=== PATIENT | female | born 1995 ===

== ENCOUNTER 2017-08-04 04:00 | Emergency (ER) | payer OTHER ==
--- NOTE | 2017-08-04 04:18 | ED PDOC ---
HPI: Psych/Substance Abuse Time Seen by Provider: 08/04/17 04:09 Chief Complaint (Nursing): Substance Abuse Chief Complaint (Provider): Intoxication ED Caveat: Intoxicated History Per: Patient History/Exam Limitations: intoxication Onset/Duration Of Symptoms: Days Current Symptoms Are (Timing): Still Present Additional Complaint(s): Patient is a 21-year-old female who was brought to the ED by EMS for substance abuse. Found intoxicated at a [employer] by employment security officer. Upon arrival to ED, patient ambulating with unsteady gait. Not answering any questions. PMD: Provider TBD Past Medical History Reviewed: Historical Data, Nursing Documentation, Vital Signs, Unable To Obtain Vital Signs: Last Vital Signs Temp 98.4 F 08/04/17 04:05 Pulse 89 08/04/17 04:05 Resp 17 08/04/17 04:05 BP 127/61 08/04/17 04:05 Pulse Ox 100 08/04/17 04:05 - Medical History PMH: No Chronic Diseases - Surgical History Surgical History: No Surg Hx - Family History Family History: States: No Known Family Hx - Allergies Allergies/Adverse Reactions: Allergies Allergy/AdvReac Type Severity Reaction Status Date / Time No Known Allergies Allergy Verified 08/04/17 04:05 Review of Systems Review Of Systems: ROS cannot be obtained secondary to pt's inabilty to answer questions. Physical Exam - Reviewed Nursing Documentation Reviewed: Yes Vital Signs Reviewed: Yes - Physical Exam Appears: Positive for: Non-toxic, No Acute Distress Head Exam: Positive for: ATRAUMATIC, NORMOCEPHALIC Skin: Positive for: Normal Color, Warm, Dry Eye Exam: Positive for: EOMI, Normal appearance, PERRL Neck: Positive for: Normal, Painless ROM Cardiovascular/Chest: Positive for: Regular Rate, Rhythm. Negative for: Murmur Respiratory: Positive for: Normal Breath Sounds. Negative for: Respiratory Distress Gastrointestinal/Abdominal: Positive for: Normal Exam, Soft. Negative for: Tenderness Extremity: Positive for: Normal ROM. Negative for: Pedal Edema, Deformity Neurologic/Psych: Positive for: Alert (and awake), Gait (unsteady), Other (not answering questions) - Laboratory Results Result Diagrams: 08/04/17 04:29 08/04/17 04:29 - ECG O2 Sat by Pulse Oximetry: 100 (RA) Pulse Ox Interpretation: Normal Medical Decision Making Medical Decision Making: Time: 04:12 Initial Impression: 21 year old female with ETOH intoxication and substance abuse Initial Plan: --CMP --Alcohol serum --Urine drug screen --CBC w/ differential --Urine dipstick --Urine --Accucheck --Pending sobriety Labs reviewed, alcohol level is 49. Still pending toxicology. Time: 07:00 Patient is signed out by me to Dr. Tarah Newton, pending labs and clinical sobriety. Scribe Attestation: Documented by Melissa Velazquez, acting as a scribe for Brain Prasad MD Provider Scribe Attestation: All medical record entries made by the Scribe were at my direction and personally dictated by me. I have reviewed the chart and agree that the record accurately reflects my personal performance of the history, physical exam, medical decision making, and the department course for this patient. I have also personally directed, reviewed, and agree with the discharge instructions and disposition. Disposition - Clinical Impression Clinical Impression: Polysubstance abuse - Patient ED Disposition Is Patient to be Admitted: Transfer of Care - Disposition Disposition: Transfer of Care Disposition Time: 07:00 Condition: STABLE Patient Signed Over To: Tarah Newton (pending labs and clinical sobriety)
[2017-08-04 04:33] LABS: BASO # 0.1 K/uL (0.0-0.2); BASO % 0.9 % (0.0-2.0); EOS # 0.4 K/uL (0.0-0.7); HEMATOCRIT 38.9 % (34.0-47.0); LYMPH # 2.4 K/uL (1.0-4.3); LYMPH % 27.5 % (20.0-40.0); MEAN CELL VOLUME 91.9 fl (81.0-99.0); MEAN CORPUSCULAR HEMOGLOBIN 30.9 pg (27.0-31.0); MEAN CORPUSCULAR HGB CONC 33.6 g/dL (33.0-37.0); MEAN PLATELET VOLUME 11.7 fl (7.2-11.7); MONO # 0.7 K/uL (0.0-0.8); MONO % 7.4 % (0.0-10.0); NEUT # 5.2 K/uL (1.8-7.0); NEUT % 59.2 % (50.0-75.0); NRBC % 0.1 % (0.0-0.0); RED CELL DISTRIBUTION WIDTH 13.6 % (11.5-14.5); WHITE BLOOD COUNT 8.8 K/uL (4.8-10.8)
[2017-08-04 04:40] LABS: ALB/GLOB RATIO 1.5 (1.0-2.1); ALCOHOL SERUM 49 mg/dl (0-10); ALKALINE PHOSPHATASE 84 U/L (38-126); ALT/SGPT 26 U/L (9-52); AST/SGOT 24 U/L (14-36); BILIRUBIN,TOTAL 0.2 mg/dl (0.2-1.3); BLOOD UREA NITROGEN 5 mg/dl (7-17); CALCIUM 8.7 mg/dL (8.4-10.2); CARBON DIOXIDE 21 mmol/L (22-30); CHLORIDE 111 mmol/L (98-107); GFR AFRICAN-AMERICAN > 60; GLUCOSE,RANDOM 104 mg/dL (65-105); POTASSIUM 3.4 MMOL/L (3.6-5.0); SODIUM 145 mmol/l (132-148); TOTAL PROTEIN 6.8 G/DL (6.3-8.2)
--- NOTE | 2017-08-04 07:11 | ED PDOC ---
- Laboratory Results Result Diagrams: 08/04/17 04:29 08/04/17 04:29 - ECG O2 Sat by Pulse Oximetry: 100 (RA) Medical Decision Making Medical Decision Making: Time: 07:00 Patient is signed over to me by Dr. Prasad pending sobriety and reevaluation. Time: 13:25 Upon provider reevaluation patient is feeling better, is medically stable, and requires no further treatment in the ED at this time. Patient will be discharged home. Counseling was provided and all questions were answered regarding diagnosis.There is agreement to discharge plan. Return if symptoms persist or worsen. Clinical Impression: Alcohol Intoxication Scribe Attestation: Documented by Jamison Chang acting as a scribe for Tarah Newton MD. Scribe Attestation: All medical record entries made by the Scribe were at my direction and personally dictated by me. I have reviewed the chart and agree that the record accurately reflects my personal performance of the history, physical exam, medical decision making, and the department course for this patient. I have also personally directed, reviewed, and agree with the discharge instructions and disposition. Disposition - Clinical Impression Clinical Impression: Polysubstance abuse - POA Present On Arrival: None - Disposition Disposition: Routine/Home Disposition Time: 13:25 Condition: STABLE
[2017-08-04] MEDS ORDERED: Potassium Chloride 20 mEq ER Tab PO STA (11:26)
[2017-08-04 12:34] VITALS: BP 122/60; PULSE 72; RESP 18; TEMP 98
[2017-08-04 13:24] VITALS: O2SAT 100
== END 2017-08-04 13:56 | disposition home or self-care (01) ==
LOC: H.ER 04:00
DX: F19.129 Other psychoactive substance abuse with intoxication, unspecified (principal); Y90.2 Blood alcohol level of 40-59 mg/100 ml

== ENCOUNTER 2017-08-27 14:12 | Emergency (ER) | payer OTHER ==
[2017-08-27 14:19] VITALS: BP 107/52; PULSE 72; RESP 16; TEMP 97.4; O2SAT 98
--- NOTE | 2017-08-27 15:02 | ED PDOC ---
HPI: CCC, URI, Sore Throat Time Seen by Provider: 08/27/17 14:45 Chief Complaint (Nursing): Cough, Cold, Congestion Chief Complaint (Provider): Cough History Per: Patient History/Exam Limitations: no limitations Onset/Duration Of Symptoms: Days (x 3 weeks) Current Symptoms Are (Timing): Still Present Associated Symptoms: Cough. denies: Sputum Additional Complaint(s): 22 year old female with a past medical history of asthma presents to the ER complaining of cough and congestion for the past 2-3 weeks. She states there is no phlegm produced by the cough, but she feels very congested. Patient also feels fatigued and states she lost her inhaler. Of note, she is a smoker. Also patient is concerned and requests test. PMD: None provided Past Medical History Reviewed: Historical Data, Nursing Documentation, Vital Signs Vital Signs: Last Vital Signs Temp 97.4 F L 08/27/17 14:16 Pulse 72 08/27/17 14:16 Resp 16 08/27/17 14:16 BP 107/52 L 08/27/17 14:16 Pulse Ox 98 08/27/17 15:07 - Family History Family History: States: Unknown Family Hx - Social History Current smoker - smoking cessation education provided: Yes - Home Medications Home Medications: Ambulatory Orders Medication Instructions Recorded Albuterol HFA [Ventolin HFA 90 2 puff IH [id number] PRN #1 inhaler 08/27/17 mcg/actuation (8 g)] Promethazine/Codeine 5 ml PO Q12 PRN #100 ml 08/27/17 [Codeine/Promethazine 10 MG/5 Ml-6.25 MG/5 Ml] - Allergies Allergies/Adverse Reactions: Allergies Allergy/AdvReac Type Severity Reaction Status Date / Time No Known Allergies Allergy Verified 08/27/17 14:16 Review of Systems ROS Statement: Except As Marked, All Systems Reviewed And Found Negative Constitutional: Negative for: Fever ENT: Positive for: Throat Pain Respiratory: Positive for: Cough. Negative for: Sputum Physical Exam - Reviewed Nursing Documentation Reviewed: Yes Vital Signs Reviewed: Yes - Physical Exam Appears: Positive for: Well, Non-toxic, No Acute Distress Head Exam: Positive for: ATRAUMATIC, NORMOCEPHALIC Skin: Positive for: Normal Color, Warm, Dry Eye Exam: Positive for: EOMI, Normal appearance, PERRL ENT: Positive for: Normal ENT Inspection, Pharynx Is (clear), TM Is/Are (normal bilaterally). Negative for: Tonsillar Exudate, Tonsillar Swelling Neck: Positive for: Normal, Painless ROM, Supple Cardiovascular/Chest: Positive for: Regular Rate, Rhythm. Negative for: Murmur Respiratory: Positive for: Normal Breath Sounds. Negative for: Accessory Muscle Use, Rhonchi, Wheezing, Respiratory Distress Neurologic/Psych: Positive for: Alert, Oriented - Laboratory Results Urine POC: Negative - ECG O2 Sat by Pulse Oximetry: 98 (RA) Pulse Ox Interpretation: Normal Medical Decision Making Medical Decision Making: Time: 15:04 Initial Impression: 22 y/o female with viral illness, requesting urine preg Initial Plan: * Ordered Urine test Patient is medically stable for discharge. Will d/c with rx's for albuterol inhaler and promethazine/codeine. Scribe Attestation: Documented by Melissa Velazquez, acting as a scribe for Dmitri Chang PA-C Provider Scribe Attestation: All medical record entries made by the Scribe were at my direction and personally dictated by me. I have reviewed the chart and agree that the record accurately reflects my personal performance of the history, physical exam, medical decision making, and the department course for this patient. I have also personally directed, reviewed, and agree with the discharge instructions and disposition. Disposition - Clinical Impression Clinical Impression: Viral illness - Patient ED Disposition Is Patient to be Admitted: No Counseled Patient/Family Regarding: Diagnosis, Need For Followup - Disposition Referrals: [facility] [Outside] Disposition: Routine/Home Disposition Time: 15:22 Condition: FAIR Prescriptions: Albuterol HFA [Ventolin HFA 90 mcg/actuation (8 g)] 2 puff IH [id number] PRN #1 inhaler PRN Reason: Cough Promethazine/Codeine [Codeine/Promethazine 10 MG/5 Ml-6.25 MG/5 Ml] 5 ml PO Q12 PRN #100 ml PRN Reason: Cough Instructions: Viral Syndrome (ED) Forms: [employer] [facility] (Maori), [facility] ED School/Work Excuse
== END 2017-08-27 15:23 | disposition home or self-care (01) ==
LOC: H.ER 14:12
DX: B34.9 Viral infection, unspecified (principal); F17.200 Nicotine dependence, unspecified, uncomplicated

== ENCOUNTER 2017-09-01 16:16 | Emergency (ER) | payer OTHER ==
[2017-09-01 16:22] VITALS: BP 140/92; PULSE 97; RESP 18; TEMP 98.6; O2SAT 100
--- NOTE | 2017-09-01 17:01 | ED PDOC ---
HPI: General Adult Time Seen by Provider: 09/01/17 16:23 Chief Complaint (Nursing): Cough, Cold, Congestion Chief Complaint (Provider): Cough, Cold, Congestion History Per: Patient History/Exam Limitations: no limitations Onset/Duration Of Symptoms: Other (x4 weeks) Current Symptoms Are (Timing): Still Present Additional Complaint(s): 22 y/o female with past medical history of asthma presents to the ED complaining of cough productive of white sputum x 4 weeks. Patient was seen here in ED several days ago and was prescribed Albuterol inhaler and promethazine but she lost her prescription and thus didnt take any medications to resolve symptoms. Denies fever, chest pain, hemoptysis, diarrhea, nausea, vomiting or any further medical complaints. Past Medical History Vital Signs: Last Vital Signs Temp 98.6 F 09/01/17 16:20 Pulse 97 H 09/01/17 16:20 Resp 18 09/01/17 16:20 BP 140/92 H 09/01/17 16:20 Pulse Ox 100 09/01/17 17:13 - Medical History PMH: Asthma - Family History Family History: States: Unknown Family Hx - Social History Ex-Smoker (has not smoked in the last 12 months): Yes (Heavy smoker > 10cigarettes daily) Alcohol: Other (yes) Drugs: Other (yes) - Home Medications Home Medications: Ambulatory Orders Medication Instructions Recorded Albuterol HFA [Ventolin HFA 90 2 puff IH [id number] PRN #1 inhaler 08/27/17 mcg/actuation (8 g)] Promethazine/Codeine 5 ml PO Q12 PRN #100 ml 08/27/17 [Codeine/Promethazine 10 MG/5 Ml-6.25 MG/5 Ml] Albuterol HFA [Ventolin HFA 90 2 puff IH [id number] PRN #90 puff 09/01/17 mcg/actuation (8 g)] Promethazine/Codeine 5 ml PO Q12 PRN #50 ml 09/01/17 [Phenergan/Codeine Oral Syrup] - Allergies Allergies/Adverse Reactions: Allergies Allergy/AdvReac Type Severity Reaction Status Date / Time No Known Allergies Allergy Verified 08/27/17 14:16 Review of Systems ROS Statement: Except As Marked, All Systems Reviewed And Found Negative (As per HPI, otherwise negative) Constitutional: Negative for: Fever Cardiovascular: Negative for: Chest Pain Respiratory: Positive for: Cough (cough productive of white sputum). Negative for: Hemoptysis Gastrointestinal: Negative for: Nausea, Vomiting, Diarrhea Physical Exam - Reviewed Nursing Documentation Reviewed: Yes Vital Signs Reviewed: Yes - Physical Exam Appears: Positive for: Well, Non-toxic, No Acute Distress Head Exam: Positive for: ATRAUMATIC, NORMAL INSPECTION, NORMOCEPHALIC Skin: Positive for: Normal Color, Warm, Dry Eye Exam: Positive for: EOMI, Normal appearance, PERRL ENT: Positive for: Normal ENT Inspection Neck: Positive for: Normal, Painless ROM, Supple Cardiovascular/Chest: Positive for: Regular Rate, Rhythm. Negative for: Murmur Respiratory: Positive for: Normal Breath Sounds. Negative for: Accessory Muscle Use, Respiratory Distress Gastrointestinal/Abdominal: Positive for: Normal Exam, Bowel Sounds, Soft Back: Positive for: Normal Inspection Extremity: Positive for: Normal ROM Neurologic/Psych: Positive for: Alert, Oriented (x3) - ECG O2 Sat by Pulse Oximetry: 100 (RA) Pulse Ox Interpretation: Normal - Progress ED Course And Treament: Pt. searched on [place] [employer] and shows no narcotic Rx within the past 2 years. Medical Decision Making Medical Decision Making: Time: 14:19 Plan: Cheat x-ray Reevaluation Scribe Attestation: Documented by Jamison Chang acting as a scribe for CYNTHIA Red. Scribe Attestation: All medical record entries made by the Scribe were at my direction and personally dictated by me. I have reviewed the chart and agree that the record accurately reflects my personal performance of the history, physical exam, medical decision making, and the department course for this patient. I have also personally directed, reviewed, and agree with the discharge instructions and disposition. Disposition - Clinical Impression Clinical Impression: Acute bronchitis - Patient ED Disposition Is Patient to be Admitted: No - Disposition Referrals: [facility] [Outside] Disposition: Routine/Home Disposition Time: 17:10 Condition: STABLE Prescriptions: Albuterol HFA [Ventolin HFA 90 mcg/actuation (8 g)] 2 puff IH [id number] PRN #90 puff PRN Reason: Cough Promethazine/Codeine [Phenergan/Codeine Oral Syrup] 5 ml PO Q12 PRN #50 ml PRN Reason: Cough Instructions: Acute Bronchitis (ED), How to Stop Smoking (ED) Forms: [employer] (Azeri)
--- NOTE | 2017-09-01 17:11 | RAD ---
HISTORY: Cough COMPARISON: No prior. TECHNIQUE: Chest PA and lateral FINDINGS: LUNGS: No active pulmonary disease. PLEURA: No significant pleural effusion identified. No pneumothorax apparent. CARDIOVASCULAR: Normal. OSSEOUS STRUCTURES: No significant abnormalities. VISUALIZED UPPER ABDOMEN: Normal. OTHER FINDINGS: None. IMPRESSION: No active disease.
== END 2017-09-01 17:44 | disposition home or self-care (01) ==
LOC: H.ER 16:16
DX: J20.9 Acute bronchitis, unspecified (principal); J45.909 Unspecified asthma, uncomplicated; Z87.891 Personal history of nicotine dependence

== ENCOUNTER 2017-10-15 13:42 | Emergency (ER) | payer OTHER ==
[2017-10-15 13:58] VITALS: BP 131/71; PULSE 88; RESP 16; TEMP 97; O2SAT 100
[2017-10-15] MEDS ORDERED: cefTRIAXone (Rocephin) 250 mg Inj IM STA (15:27)
[2017-10-15] MEDS ORDERED: cefTRIAXone (Rocephin) 250 mg Inj ONE (15:41)
--- NOTE | 2017-10-15 15:43 | ED PDOC ---
HPI: Abdomen Time Seen by Provider: 10/15/17 14:11 Chief Complaint (Nursing): Abdominal Pain Chief Complaint (Provider): Abdominal Pain History Per: Patient History/Exam Limitations: no limitations Onset/Duration Of Symptoms: Days (x2 weeks) Current Symptoms Are (Timing): Still Present Additional Complaint(s): 22 year old female with a past medical history of asthma and bipolar disorder, who presents to the ED complaining of intermittent pelvic and epigastric pain x2 weeks. States the pain seems to change location and comes and goes. Denies associated nausea, vomiting, diarrhea or constipation. Also denies loss of appetite. LNMP was last week. States she currently has no vaginal discharge or bleeding. Denies rash, fever, or chills. States she is concerned due to a recent sexual exposure with another person that may have an STI. Patient is also complaining of a cough x2 months. States it is not productive and is associated with a mild sore throat and rhinorrhea. Patient also reports she has been drinking every night for the past few weeks because "it's there". Denies alcohol dependence. PMD: None Past Medical History Reviewed: Historical Data, Nursing Documentation, Vital Signs Vital Signs: Last Vital Signs Temp 97.0 F L 10/15/17 13:57 Pulse 88 10/15/17 13:57 Resp 16 10/15/17 13:57 BP 131/71 10/15/17 13:57 Pulse Ox 100 10/15/17 15:51 - Medical History PMH: Asthma, Bipolar Disorder (off medication) - Surgical History Surgical History: No Surg Hx - Family History Family History: States: Unknown Family Hx - Social History Current smoker - smoking cessation education provided: Yes Alcohol: > 2 Drinks/Day Drugs: Cannabis - Home Medications Home Medications: Ambulatory Orders Medication Instructions Recorded Albuterol HFA [Ventolin HFA 90 2 puff IH [id number] PRN #1 inhaler 08/27/17 mcg/actuation (8 g)] Promethazine/Codeine 5 ml PO Q12 PRN #100 ml 08/27/17 [Codeine/Promethazine 10 MG/5 Ml-6.25 MG/5 Ml] Albuterol HFA [Ventolin HFA 90 2 puff IH [id number] PRN #90 puff 09/01/17 mcg/actuation (8 g)] Promethazine/Codeine 5 ml PO Q12 PRN #50 ml 09/01/17 [Phenergan/Codeine Oral Syrup] Albuterol HFA [Ventolin HFA 90 2 puff IH Q4H PRN #1 inh 10/15/17 mcg/actuation (8 g)] Azithromycin [Zithromax] 250 mg PO DAILY #4 dose 10/15/17 Famotidine [Pepcid] 40 mg PO DAILY PRN #14 tab 10/15/17 - Allergies Allergies/Adverse Reactions: Allergies Allergy/AdvReac Type Severity Reaction Status Date / Time No Known Allergies Allergy Verified 10/15/17 13:56 Review of Systems ROS Statement: Except As Marked, All Systems Reviewed And Found Negative Constitutional: Negative for: Fever, Chills Gastrointestinal: Positive for: Abdominal Pain. Negative for: Nausea, Vomiting , Diarrhea, Constipation Genitourinary Female: Positive for: Pelvic Pain. Negative for: Vaginal Discharge, Vaginal Bleeding Skin: Negative for: Rash Psych: Negative for: Psychosis, Suicidal ideation (or homicidal) Physical Exam - Reviewed Nursing Documentation Reviewed: Yes Vital Signs Reviewed: Yes - Physical Exam Appears: Positive for: Non-toxic, No Acute Distress Head Exam: Positive for: ATRAUMATIC, NORMOCEPHALIC Skin: Positive for: Warm, Dry Eye Exam: Positive for: EOMI, PERRL ENT: Positive for: Pharynx Is (clear). Negative for: Pharyngeal Erythema, Tonsillar Exudate, Tonsillar Swelling Neck: Positive for: Painless ROM, Supple Cardiovascular/Chest: Positive for: Regular Rate, Rhythm, Chest Non Tender. Negative for: Murmur Respiratory: Positive for: Normal Breath Sounds. Negative for: Rales, Wheezing , Respiratory Distress Gastrointestinal/Abdominal: Positive for: Soft. Negative for: Tenderness, Mass , Distended, Guarding Back: Positive for: Normal Inspection. Negative for: Decreased ROM Extremity: Positive for: Normal ROM. Negative for: Deformity Lymphatic: Negative for: Adenopathy ( cervical) Neurologic/Psych: Positive for: Alert. Negative for: Motor/Sensory Deficits - ECG O2 Sat by Pulse Oximetry: 100 (RA) Pulse Ox Interpretation: Normal Medical Decision Making Medical Decision Making: Time: 14:23 Initial Impression: Mild cough, and abdominal pain with benign clinical findings Initial Plan: --ED Urine --ED Urine dipstick --CXR --Chlamydia/GC RNA,TMA --Throat culture --Influenza A B --Rapid strep group A antigen Time: 15:29 Labs and cxr unremarkable Upon provider evaluation patient is medically stable, and requires no further treatment in the ED at this time. Patient will be discharged with Rx for Pepcid , Zithromax, and Albuterol. Counseling was provided and all questions were answered regarding diagnosis and need for follow up with PMD. There is agreement to discharge plan. Return if symptoms persist or worsen. Scribe Attestation: Documented by Ap Sharp, acting as a scribe for Ceci Jackson MD. Provider Scribe Attestation: All medical record entries made by the Scribe were at my direction and personally dictated by me. I have reviewed the chart and agree that the record accurately reflects my personal performance of the history, physical exam, medical decision making, and the department course for this patient. I have also personally directed, reviewed, and agree with the discharge instructions and disposition. Disposition - Clinical Impression Clinical Impression: Cough, Abdominal pain - Patient ED Disposition Is Patient to be Admitted: No Counseled Patient/Family Regarding: Studies Performed, Diagnosis, Need For Followup, Rx Given - Disposition Referrals: [facility] [Outside] (FOLLOW UP AT CLINIC IN 1-2 WEEKS FOR REEVALUATION) Disposition: Routine/Home Disposition Time: 15:29 Condition: GOOD Prescriptions: Albuterol HFA [Ventolin HFA 90 mcg/actuation (8 g)] 2 puff IH Q4H PRN #1 inh PRN Reason: ASTHMA Azithromycin [Zithromax] 250 mg PO DAILY #4 dose Famotidine [Pepcid] 40 mg PO DAILY PRN #14 tab PRN Reason: reflux Instructions: Safe Sex (ED), Acute Bronchitis (ED), Abdominal Pain (ED) Forms: [employer] (Azerbaijani)
--- NOTE | 2017-10-15 16:13 | RAD ---
HISTORY: persitent cough COMPARISON: Comparison is made with 09/01/2017 TECHNIQUE: Chest PA and lateral FINDINGS: LUNGS: No active pulmonary disease. PLEURA: No significant pleural effusion identified. No pneumothorax apparent. CARDIOVASCULAR: Normal. OSSEOUS STRUCTURES: No significant abnormalities. VISUALIZED UPPER ABDOMEN: Normal. OTHER FINDINGS: None. IMPRESSION: No active disease.
== END 2017-10-15 16:02 | disposition home or self-care (01) ==
LOC: H.ER 13:42
DX: J45.909 Unspecified asthma, uncomplicated (principal); R10.9 Unspecified abdominal pain; F17.200 Nicotine dependence, unspecified, uncomplicated
CPT/HCPCS: 71046; 81025; 87070; 87430; 87491; 87591; 87804; 96372; 99282; J0696

== ENCOUNTER 2018-08-31 00:54 | Emergency (ER) | payer MEDICAID, OTHER ==
[2018-08-31 01:20] VITALS: RESP 18; O2SAT 98
[2018-08-31] MEDS ORDERED: Albuterol-Ipratrop 3 mg / 0.5 (3 ml) UD INH STA (01:43)
--- NOTE | 2018-08-31 02:53 | ED PDOC ---
HPI: CCC, URI, Sore Throat Time Seen by Provider: 08/31/18 01:12 Chief Complaint (Nursing): Cough, Cold, Congestion Chief Complaint (Provider): Cough, Cold, Congestion History Per: Patient History/Exam Limitations: no limitations Onset/Duration Of Symptoms: Persistent (x1 week) Current Symptoms Are (Timing): Still Present Additional Complaint(s): 23 year old female with pmHx of asthma, presents to ED with complaints of productive cough and chills for 1 week. Patient reports she is homeless and has not had a flu shot this year. Otherwise, she denies fever or further medical complaints. PCP: Dr. Saira Hernandez Past Medical History Reviewed: Historical Data, Nursing Documentation, Vital Signs Vital Signs: Last Vital Signs Temp 98.1 F 08/31/18 01:16 Pulse 89 08/31/18 01:16 Resp 18 08/31/18 01:16 BP 124/78 08/31/18 01:16 Pulse Ox 98 08/31/18 01:16 - Medical History PMH: Asthma, Bipolar Disorder (off medication) - Family History Family History: States: Unknown Family Hx - Social History Current smoker - smoking cessation education provided: Yes (1/2 pack/daily) - Home Medications Home Medications: Ambulatory Orders Medication Instructions Recorded No Known Home Med 08/31/18 - Allergies Allergies/Adverse Reactions: Allergies Allergy/AdvReac Type Severity Reaction Status Date / Time No Known Allergies Allergy Verified 10/15/17 13:56 Review of Systems ROS Statement: Except As Marked, All Systems Reviewed And Found Negative Constitutional: Positive for: Chills. Negative for: Fever Respiratory: Positive for: Cough, Sputum Physical Exam - Reviewed Nursing Documentation Reviewed: Yes Vital Signs Reviewed: Yes - Physical Exam Appears: Positive for: Non-toxic, No Acute Distress Head Exam: Positive for: ATRAUMATIC, NORMAL INSPECTION, NORMOCEPHALIC Skin: Positive for: Normal Color Eye Exam: Positive for: Normal appearance, EOMI, PERRL ENT: Positive for: Normal ENT Inspection. Negative for: Pharyngeal Erythema, Tonsillar Exudate, Tonsillar Swelling Neck: Positive for: Normal, Supple Cardiovascular/Chest: Positive for: Regular Rate, Rhythm, Chest Non Tender Respiratory: Positive for: Wheezing (trace on expiration bilaterally). Negative for: Respiratory Distress Gastrointestinal/Abdominal: Positive for: Normal Exam, Soft. Negative for: Tenderness Extremity: Positive for: Normal ROM (upper/lower) Neurologic/Psych: Positive for: Alert, Oriented. Negative for: Motor/Sensory Deficits - ECG O2 Sat by Pulse Oximetry: 98 (RA) Pulse Ox Interpretation: Normal Medical Decision Making Medical Decision Making: Initial Impression: 23 year old female with URI and bronchitis. Initial Plan: * Urine * CXR * Duoneb 3ml INH * Influenza AB Time: 0300 --Urine: (+) . CXR subsequently cancelled secondary to risk of radiation exposure. Negative for influenza. Time: 0530 --Upon provider reevaluation, patient is medically stable and requires no further treatment in the ED at this time. Patient will be discharged home. Counseling was provided and all questions were answered regarding diagnosis. There is agreement to discharge plan. Return if symptoms persist or worsen. Clinical Impression: Bronchitis Scribe Attestation: Documented by Christina Hernandez, acting as a scribe for Brain Prasad MD. Provider Scribe Attestation: All medical record entries made by the Scribe were at my direction and personally dictated by me. I have reviewed the chart and agree that the record accurately reflects my personal performance of the history, physical exam, medical decision making, and the department course for this patient. I have also personally directed, reviewed, and agree with the discharge instructions and disposition. Disposition - Clinical Impression Clinical Impression: Bronchitis - Patient ED Disposition Is Patient to be Admitted: No Counseled Patient/Family Regarding: Studies Performed, Diagnosis, Need For Followup - Disposition Disposition: Routine/Home Disposition Time: 05:30 Condition: STABLE Instructions: Acute Bronchitis Forms: [employer] (Citizen Of [place])
[2018-08-31 06:01] VITALS: BP 110/78; PULSE 78; TEMP 98.2
== END 2018-08-31 06:00 | disposition home or self-care (01) ==
LOC: H.ER 00:54
DX: J40 Bronchitis, not specified as acute or chronic (principal); Z59.0 Homelessness

== ENCOUNTER 2018-09-01 03:21 | Emergency (ER) | payer MEDICAID, OTHER ==
[2018-09-01 03:37] VITALS: BMI 22.3
[2018-09-01 03:39] VITALS: TEMP 98.3
--- NOTE | 2018-09-01 05:31 | ED PDOC ---
HPI: Chest Pain Time Seen by Provider: 09/01/18 04:09 Chief Complaint (Nursing): Chest Pain Chief Complaint (Provider): chest pain History Per: Patient History/Exam Limitations: no limitations Onset/Duration Of Symptoms: Days Additional Complaint(s): 23 y/o Homeless Female with no significant PMH who presents with chest pain and cough x several days. Pt was seen here in ED yesterday and found to be . Pt states that she was given antibiotic prescription yesterday for possible bronchitis. She admits to smoking cigarettes and occasional marijuana, which she is trying to quit. Denies dizziness, N/V, fevers, night sweats. Continues to have nausea and occasional vomiting. Denies abdominal pain or dizziness, vaginal bleeding or abdominal cramping. Past Medical History Reviewed: Historical Data, Nursing Documentation, Vital Signs Vital Signs: Last Vital Signs Temp 98.3 F 09/01/18 03:37 Pulse 78 09/01/18 03:37 Resp 18 09/01/18 03:37 BP 115/57 L 09/01/18 03:37 Pulse Ox 98 09/01/18 03:37 - Medical History PMH: Asthma, Bipolar Disorder (off medication) - Family History Family History: States: Unknown Family Hx - Social History Current smoker - smoking cessation education provided: Yes Drugs: Cannabis - Home Medications Home Medications: Ambulatory Orders Medication Instructions Recorded RX: No Known Home Med 08/31/18 - Allergies Allergies/Adverse Reactions: Allergies Allergy/AdvReac Type Severity Reaction Status Date / Time No Known Allergies Allergy Verified 09/01/18 03:36 Review of Systems Constitutional: Negative for: Fever, Chills, Weakness ENT: Negative for: Ear Pain Cardiovascular: Positive for: Chest Pain. Negative for: Palpitations, Orthopnea, Light Headedness Respiratory: Positive for: Cough, Pleuritic Pain. Negative for: Shortness of Breath, Hemoptysis Gastrointestinal: Positive for: Nausea, Diarrhea. Negative for: Vomiting, Abdominal Pain Physical Exam - Reviewed Nursing Documentation Reviewed: Yes Vital Signs Reviewed: Yes - Physical Exam Appears: Positive for: Non-toxic Head Exam: Positive for: ATRAUMATIC Skin: Positive for: Normal Color ENT: Positive for: Normal ENT Inspection Neck: Positive for: Supple Cardiovascular/Chest: Positive for: Regular Rate, Rhythm Respiratory: Positive for: Normal Breath Sounds. Negative for: Accessory Muscle Use, Plerual Rub Gastrointestinal/Abdominal: Positive for: Normal Exam Lymphatic: Positive for: Normal Exam Neurologic/Psych: Positive for: Alert, Oriented - ECG O2 Sat by Pulse Oximetry: 98 Medical Decision Making Medical Decision Making: Tylenol 650mg PO x 1 EKG: sinus, HR 76, no ischemic change. Pt walking with a steady gait and speaking coherently. Stable for d/c home with referral to [facility] for establishment of care. Disposition - Clinical Impression Clinical Impression: Pleuritic chest pain - Patient ED Disposition Is Patient to be Admitted: No Counseled Patient/Family Regarding: Need For Followup, Rx Given - Disposition [facility]errals[facility] [[facility] [Outside] Disposition: Routine/Home Disposition Time: 06:00 Condition: STABLE Additional Instructions: Follow-up in [facility] to establish care. Refrain from using any drugs, alcohol or smoking cigarettes as it can harm your unborn baby. Instructions: Pleuritic Chest Pain (DC) Forms: [employer] (Thai) Print Language: ERITREAN
[2018-09-01 06:35] VITALS: BP 120/72; PULSE 75; RESP 16; O2SAT 99
--- NOTE | 2018-09-01 21:04 | CARD ---
APPROVED REPORT Date of service: 09/01/2018 EKG Measurement Heart [id number] <Conclusion> Normal sinus rhythm Normal ECG
== END 2018-09-01 07:12 | disposition home or self-care (01) ==
LOC: H.ER 03:21
DX: R07.89 Other chest pain (principal); F12.90 Cannabis use, unspecified, uncomplicated; F17.210 Nicotine dependence, cigarettes, uncomplicated; Z86.59 Personal history of other mental and behavioral disorders; J45.909 Unspecified asthma, uncomplicated; Z59.0 Homelessness

== ENCOUNTER 2018-09-03 17:02 | Emergency (ER) | payer MEDICAID, OTHER ==
[2018-09-03 17:02] VITALS: BMI 22.3
[2018-09-03 17:16] VITALS: BP 117/70; PULSE 84; TEMP 97.9; O2SAT 96
[2018-09-03 17:35] VITALS: RESP 12
--- NOTE | 2018-09-03 18:13 | ED PDOC ---
HPI:Nausea, Vomiting, Diarrhea Time Seen by Provider: 09/03/18 17:18 Chief Complaint (Nursing): Respiratory Distress Chief Complaint (Provider): Cough, cold, congestion History Per: Patient History/Exam Limitations: no limitations Onset/Duration Of Symptoms: Days (3x days) Current Symptoms Are (Timing): Still Present Severity: Moderate Additional Complaint(s): 23 year old female with a past medical history of asthma presents to the ED for an evaluation of a cough, accompanied by congestion, throat pain, and wheezing that started 3x days ago. Patient has already been seen here and at [facility]. Patient was prescribed an albuterol inhaler in [place], but has yet to fill her prescription. Patient is currently (last known period ?June 25, 2018). Patient denies having care, abdominal pain, pelvic pain, vaginal bleeding, back gilliam, and fevers. PMD: None provided Past Medical History Reviewed: Historical Data, Nursing Documentation, Vital Signs Vital Signs: Last Vital Signs Temp 97.9 F 09/03/18 17:15 Pulse 84 09/03/18 17:15 Resp 12 09/03/18 17:25 BP 117/70 09/03/18 17:15 Pulse Ox 96 09/03/18 17:15 [place] report viewed?: Yes - Medical History PMH: Asthma, Bipolar Disorder (off medication) - Surgical History Surgical History: No Surg Hx - Family History Family History: States: No Known Family Hx - Social History Current smoker - smoking cessation education provided: Yes Alcohol: Other (yes) - Home Medications Home Medications: Ambulatory Orders Medication Instructions Recorded RX: No Known Home Med 08/31/18 - Allergies Allergies/Adverse Reactions: Allergies Allergy/AdvReac Type Severity Reaction Status Date / Time No Known Allergies Allergy Verified 09/03/18 17:14 Review of Systems ROS Statement: Except As Marked, All Systems Reviewed And Found Negative Constitutional: Negative for: Fever ENT: Positive for: Nose Congestion, Throat Pain Respiratory: Positive for: Cough, Wheezing Gastrointestinal: Negative for: Abdominal Pain Genitourinary Female: Negative for: Vaginal Bleeding, Pelvic Pain Musculoskeletal: Negative for: Back Pain Physical Exam - Reviewed Nursing Documentation Reviewed: Yes Vital Signs Reviewed: Yes - Physical Exam Appears: Positive for: Well, Non-toxic, No Acute Distress Head Exam: Positive for: ATRAUMATIC, NORMOCEPHALIC Skin: Positive for: Normal Color, Warm, Dry Eye Exam: Positive for: Normal appearance, EOMI, PERRL ENT: Positive for: Normal ENT Inspection. Negative for: Pharyngeal Erythema, Tonsillar Exudate, Tonsillar Swelling Neck: Positive for: Normal, Painless ROM Cardiovascular/Chest: Positive for: Regular Rate, Rhythm Respiratory: Positive for: Normal Breath Sounds. Negative for: Wheezing, Respiratory Distress Gastrointestinal/Abdominal: Positive for: Normal Exam, Soft. Negative for: Tenderness Neurologic/Psych: Positive for: Alert, Oriented (3x) - ECG O2 Sat by Pulse Oximetry: 96 (RA) Pulse Ox Interpretation: Normal Medical Decision Making Medical Decision Makin:18 Initial impression: 23 year old female with a cough, cold, congestion. 17:35 Patient was informed that at the moment she does not need albuterol as her lungs are clear to auscultation. Patient is told that she only needs albuterol if she experiences shortness of breath or wheezing. Patient became irrate, and requested care, despite not having vaginal bleeding, abdominal pain, pelvic pain, and back pain. Patient is advised to use her albuterol prescription only if she experiences wheezing, and to only take prescribed medications now. Patient walked out without signing discharge instructions. Scribe Attestation: Documented by Alanis Grigsby, acting as a scribe for Magan Serrato Provider Scribe Attestation: All medical record entries made by the Scribe were at my direction and personally dictated by me. I have reviewed the chart and agree that the record accurately reflects my personal performance of the history, physical exam, medical decision making, and the department course for this patient. I have also personally directed, reviewed, and agree with the discharge instructions and disposition. Disposition - Clinical Impression Clinical Impression: URI (upper respiratory infection) - Patient ED Disposition Is Patient to be Admitted: No - Disposition Disposition: Routine/Home Disposition Time: 17:40 Condition: STABLE Forms: [employer] (Sami)
== END 2018-09-03 17:35 | disposition home or self-care (01) ==
LOC: H.ER 17:02
DX: J06.9 Acute upper respiratory infection, unspecified (principal); F17.200 Nicotine dependence, unspecified, uncomplicated; Z86.59 Personal history of other mental and behavioral disorders; J45.909 Unspecified asthma, uncomplicated

== ENCOUNTER 2018-09-04 14:18 | Emergency (ER) | payer MEDICAID, OTHER ==
[2018-09-04 14:19] VITALS: BMI 22.3
[2018-09-04] MEDS ORDERED: Albuterol 0.083% Inhal Sol (2.5 mg/3 mL) UD INH STA (14:57)
[2018-09-04] MEDS ORDERED: Albuterol-Ipratrop 3 mg / 0.5 (3 ml) UD ONE (15:04)
[2018-09-04] MEDS ORDERED: Albuterol 0.083% Inhal Sol (2.5 mg/3 mL) UD ONE (15:08)
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
[2018-09-04 16:38] VITALS: BP 120/78; PULSE 78; RESP 19; TEMP 97.7; O2SAT 98
== END 2018-09-04 16:39 | disposition home or self-care (01) ==
LOC: H.ER 14:18
DX: J45.909 Unspecified asthma, uncomplicated (principal)

== ENCOUNTER 2018-09-11 16:46 | Emergency (ER) | payer MEDICAID, OTHER ==
[2018-09-11 16:46] VITALS: BMI 22.3
[2018-09-11 16:51] VITALS: BP 159/115; PULSE 136; RESP 16; TEMP 98.5; O2SAT 98
== END 2018-09-11 18:50 | disposition left against medical advice (07) ==
LOC: H.ER 16:46
DX: Z02.89 Encounter for other administrative examinations (principal)

== ENCOUNTER 2018-09-20 16:53 | Emergency (ER) | payer OTHER ==
[2018-09-20 16:53] VITALS: BMI 22.3
[2018-09-20 17:28] VITALS: BP 108/65; PULSE 83; RESP 18; TEMP 98.4; O2SAT 100
[2018-09-20 18:53] LABS: BASO # 0.1 K/uL (0.0-0.2); BASO % 0.6 % (0.0-2.0); EOS # 0.2 K/uL (0.0-0.7); EOS % 1.8 % (0.0-4.0); LYMPH # 2.5 K/uL (1.0-4.3); LYMPH % 22.7 % (20.0-40.0); MEAN CELL VOLUME 90.3 fl (81.0-99.0); MEAN CORPUSCULAR HEMOGLOBIN 30.5 pg (27.0-31.0); MEAN CORPUSCULAR HGB CONC 33.8 g/dL (33.0-37.0); MEAN PLATELET VOLUME 11.2 fl (7.2-11.7); MONO # 0.8 K/uL (0.0-0.8); MONO % 7.2 % (0.0-10.0); NEUT # 7.3 K/uL (1.8-7.0); NEUT % 67.7 % (50.0-75.0); NRBC % 0.1 % (0.0-0.0); RBC 4.27 Mil/uL (3.80-5.20); RED CELL DISTRIBUTION WIDTH 14.1 % (11.5-14.5); WHITE BLOOD COUNT 10.9 K/uL (4.8-10.8)
[2018-09-20 19:04] LABS: ALB/GLOB RATIO 1.3 (1.0-2.1); ALBUMIN 3.8 g/dL (3.5-5.0); ALT/SGPT 27 U/L (9-52); AST/SGOT 27 U/L (14-36); BLOOD UREA NITROGEN 7 mg/dl (7-17); CALCIUM 8.9 mg/dL (8.4-10.2); GFR NON-AFRICAN AMERICAN > 60
--- NOTE | 2018-09-20 19:10 | ED PDOC ---
HPI: General Adult Time Seen by Provider: 09/20/18 17:56 Chief Complaint (Nursing): Flu-like Symptoms History Per: Patient Additional Complaint(s): Pt. states for the past 2 days she's had chills with cough. Also reports being approximately 5-6 weeks and has been having suprapubic cramping without vaginal bleeding x 2 weeks. Has been using Tylenol to help with fever. Denies SOB, chest pain, wheezing, vaginal bleeding, dysuria, hx of ectopic . Past Medical History Reviewed: Historical Data, Nursing Documentation, Vital Signs Vital Signs: Last Vital Signs Temp 98.4 F 09/20/18 17:26 Pulse 83 09/20/18 17:26 Resp 18 09/20/18 17:26 BP 108/65 09/20/18 17: Pulse Ox 100 09/20/18 17:26 - Medical History PMH: Asthma, Bipolar Disorder (off medication) - Surgical History Surgical History: No Surg Hx - Family History Family History: States: No Known Family Hx - Home Medications Home Medications: Ambulatory Orders Medication Instructions Recorded RX: No Known Home Med 08/31/18 - Allergies Allergies/Adverse Reactions: Allergies Allergy/AdvReac Type Severity Reaction Status Date / Time No Known Allergies Allergy Verified 09/20/18 17:26 Physical Exam - Physical Exam Appears: Positive for: Well Skin: Positive for: Normal Color, Warm. Negative for: Rash Eye Exam: Positive for: Normal appearance Cardiovascular/Chest: Positive for: Regular Rate, Rhythm Respiratory: Positive for: Normal Breath Sounds. Negative for: Wheezing, Respiratory Distress Gastrointestinal/Abdominal: Positive for: Normal Exam, Soft. Negative for: Tenderness (including pelvic area) Back: Positive for: Normal Inspection. Negative for: L CVA Tenderness, R CVA Tenderness Neurologic/Psych: Positive for: Alert, Oriented (x3) - Laboratory Results Result Diagrams: 09/20/18 18:40 09/20/18 18:40 Lab Results: Total Bilirubin 0.1 mg/dl (0.2-1.3) L 09/20/18 18:40 AST 27 U/L (14-36) 09/20/18 18:40 ALT 27 U/L (9-52) 09/20/18 18:40 Alkaline Phosphatase 82 U/L (38-126) 09/20/18 18:40 Total Protein 6.7 G/DL (6.3-8.2) 09/20/18 18:40 Albumin 3.8 g/dL (3.5-5.0) 09/20/18 18:40 Globulin 3.0 gm/dL (2.2-3.9) 09/20/18 18:40 Albumin/Globulin Ratio 1.3 (1.0-2.1) 09/20/18 18:40 Urine POC: Positive - ECG O2 Sat by Pulse Oximetry: 100 - Progress ED Course And Treament: Labs, TVUS, tamiflu PO ordered. Disposition - Clinical Impression Clinical Impression: Influenza-like symptoms, Pelvic pain during - Patient ED Disposition Is Patient to be Admitted: Transfer of Care (Signed out to Greyson EVERETT pending US and re-evaluation.) - Disposition Disposition Time: 20:00 Condition: STABLE Forms: [employer] (Swedish)
--- NOTE | 2018-09-20 20:33 | ED PDOC ---
- Laboratory Results Result Diagrams: 09/20/18 18:40 09/20/18 18:40 Lab Results: Total Bilirubin 0.1 mg/dl (0.2-1.3) L 09/20/18 18:40 AST 27 U/L (14-36) 09/20/18 18:40 ALT 27 U/L (9-52) 09/20/18 18:40 Alkaline Phosphatase 82 U/L (38-126) 09/20/18 18:40 Total Protein 6.7 G/DL (6.3-8.2) 09/20/18 18:40 Albumin 3.8 g/dL (3.5-5.0) 09/20/18 18:40 Globulin 3.0 gm/dL (2.2-3.9) 09/20/18 18:40 Albumin/Globulin Ratio 1.3 (1.0-2.1) 09/20/18 18:40 Beta HCG, Quant 58951.00 mIU/mL 09/20/18 18:40 Urine POC: Positive - ECG O2 Sat by Pulse Oximetry: 100 (RA) Pulse Ox Interpretation: Normal Medical Decision Making Medical Decision Making: Case endorsed to flex o writer operator, Greyson EVERETT, at 1999 due to shift change. Patient pending U/S evaluation, re-evaluation, and further disposition. Labs reviewed. Influenza: negative. Beta Quant: 55,521.00. 2030 Patient sleeping comfortably on re-evaluation with significant other at bedside. 2210 Patient in U/S. 2310 U/S reviewed, USArad impression follows IMPRESSION: Single live intrauterine measuring 10 weeks 3 days with heart rate of 167bpm. On re-evaluation, patient reports improvement of symptoms. On exam, patient remains AAOx3, in no acute distress. Lungs clear to auscultation, cardiac RRR, abdomen soft, non-tender, repeat neuro exam shows no focal findings. Vitals stable. Lab/Diagnostic results d/w the patient in great detail. Diagnosis of abdominal pain in , influenza d/w the patient. Based on history, exam and diagnostic results, plan will be for outpatient follow up with clinic/OBGYN. Patient instructed to follow-up with pmd / referral provided / the clinic in 1- 2 days without fail. Advised to take medication as prescribed. Return to the emergency room at any time for any new or worsening symptoms. Patient states she fully agrees with and understands discharge instructions. States that she agrees with the plan and disposition. Verbalized and repeated discharge instructions and plan. I have given the patient opportunity to ask any additional questions. Disposition Counseled Patient/Family Regarding: Studies Performed, Diagnosis, Need For Followup, Rx Given - Clinical Impression Clinical Impression: Influenza-like symptoms, Pelvic pain during - POA Present On Arrival: None - Disposition Referrals: [facility] [Outside] [facility] [Outside] Disposition: Routine/Home Disposition Time: 23:10 Condition: STABLE Additional Instructions: The emergency medical care you received today was directed at your acute symptoms. If you were prescribed any medication, please fill it and take as directed. It may take several days for your symptoms to resolve. Return to the Emergency Department if your symptoms worsen, do not improve, or if you have any other problems. Please contact your doctor in 2 days for re-evaluation and follow up / or call one of the physicians/clinics you have been referred to that are listed on the Patient Visit Information form that is included in your discharge packet. Bring any paperwork you were given at discharge with you along with any medications you are taking to your follow up visit. Our treatment cannot replace ongoing medical care by a primary care provider (PCP) outside of the emergency department. Prescriptions: Acetaminophen [Acetaminophen 8 Hour] 650 mg PO Q8 PRN #21 tablet.er PRN Reason: fever/pain Oseltamivir Phosphate [Tamiflu] 75 mg PO BID #10 capsule 21/Iron Fu/Folic Acid [ Complete Caplet] 1 each PO DAILY #60 tablet Instructions: Flu, and the Flu, - The Third Month, - The Fourth Month, - The Fifth Month, Care, Stomach Pain in Early Forms: [employer] (Italian) Print Language: LAO Results - Lab Results Lab Results: 09/20/18 09/20/18 09/20/18 18:40 18:40 18:40 WBC 10.9 H RBC 4.27 Hgb 13.0 Hct 38.5 MCV 90.3 MCH 30.5 MCHC 33.8 RDW 14.1 Plt Count 139 MPV 11.2 Neut % (Auto) 67.7 Lymph % (Auto) 22.7 [place] % (Auto) 7.2 Eos % (Auto) 1.8 Baso % (Auto) 0.6 Neut # (Auto) 7.3 H Lymph # (Auto) 2.5 [place] # (Auto) 0.8 Eos # (Auto) 0.2 Baso # (Auto) 0.1 Sodium 135 Potassium 3.7 Chloride 100 Carbon Dioxide 25 Anion Gap 14 BUN 7 Creatinine 0.6 L Est GFR ( Amer) > 60 Est GFR (Non-Af Amer) > 60 Random Glucose 86 Calcium 8.9 Total Bilirubin 0.1 L AST 27 ALT 27 Alkaline Phosphatase 82 Total Protein 6.7 Albumin 3.8 Globulin 3.0 Albumin/Globulin Ratio 1.3 Beta HCG, Quant 73006.00 Influenza Typ A,B (EIA) Negative for flu a/b
[2018-09-20 20:45] LABS: SQUAMOUS EPITHIAL 1 /hpf (0-5); URINE BILIRUBIN NEGATIVE (NEGATIVE); URINE BLOOD NEGATIVE (NEGATIVE); URINE CLARITY SLIGHTY-CLOUDY (Clear); URINE COLOR STRAW (YELLOW); URINE GLUCOSE (UA) NEG (NEGATIVE); URINE LEUKOCYTE ESTERASE NEG Leu/uL (Negative); URINE PROTEIN NEGATIVE (NEGATIVE); URINE UROBILINOGEN 0.2-1.0 mg/dL (0.2-1.0)
--- NOTE | 2018-09-21 17:29 | US ---
Date of service: 09/20/2018 PROCEDURE: OB Pelvic Ultrasound HISTORY: pelvic pain LMP: 06/30/2018 suggesting 11 weeks 5 day gestation. COMPARISON: None available. FINDINGS: UTERUS: Gestational sac: Single intrauterine gestation. Heart rate: 167 bpm. age (Ultrasound estimated): 10 weeks 3 days by CRL measurement of series 3.58 cm. Mean sac diameter 5.1 cm. Yolk sac measures 0.5 cm Larisa-gestational hemorrhage: None. Date of delivery (Ultrasound estimated) : 04/13/2019 Uterus measures 1.4 x 8.1 x 7.7 cm. Normal in size and appearance. CERVIX: Measures 4.0 cm. Long and closed. No cervical abnormality seen. RIGHT OVARY: Measures 2.4 x 1.6 x 1.8 cm. No mass lesion. Normal flow. LEFT OVARY: Measures 2.6 x 2.4 x 1.2 cm. No solid mass. Normal flow. FREE FLUID: None. OTHER FINDINGS: None. IMPRESSION: Single viable intrauterine gestation with ultrasonic age of 10 weeks 3 days based on CRL mean as discussed above. No definite decidual hemorrhage appreciated and cardiac activity measures 167 beats per minute. Concordant preliminary report from Cheryl, 09/20/2018, 11:07 p.m..
== END 2018-09-20 23:20 | disposition home or self-care (01) ==
LOC: H.ER 16:53
DX: O26.899 Other specified pregnancy related conditions, unspecified trimester (principal); Z3A.10 10 weeks gestation of pregnancy; J11.1 Influenza due to unidentified influenza virus with other respiratory manifestations

== ENCOUNTER 2018-09-24 17:15 | Emergency (ER) | payer OTHER ==
[2018-09-24 17:15] VITALS: BMI 22.3
[2018-09-24 17:58] VITALS: BP 108/65; PULSE 69; RESP 16; TEMP 98.3; O2SAT 98
--- NOTE | 2018-09-24 18:07 | ED PDOC ---
HPI: Wound Care - HPI Time Seen by Provider: 09/24/18 18:04 Chief Complaint (Nursing): Wound Check Chief Complaint (Provider): Wound Check History Per: Patient Exam Limitations: no limitations Onset/Duration Of Symptoms: Days Current Symptoms Are (Timing): Still Present Additional Complaint(s): 23 y/o female presents to the ED for evaluation of a wound/suture check. Patient report she was seen at [facility] yesterday for a wound evaluation to the right 3rd digit where the sutures where placed. Patient presents today requesting new bandages as those on have gotten wet and are starting to come off. Of note, patient reports she is 13 weeks . Pt was encouraged to utilize one of the [facility] clinics for bandage changes to which she stated, "fuck yo, I ain't got no time for that"... "I want another doctor." I informed her that she was in the low acuity side and did not have a choice of providers for a bandage change, to which she stated "that's fucked up, aint nobody telling me that, I'm ." I again informed her that I would remove her existing bandage and provide a rewrap, and spewing obscenities, she grabbed her rolling luggage and departed. PMD: no provider. Past Medical History Reviewed: Historical Data, Nursing Documentation, Vital Signs Vital Signs: Last Vital Signs Temp 98.3 F 09/24/18 17:55 Pulse 69 09/24/18 17:55 Resp 16 09/24/18 17:55 BP 108/65 09/24/18 17:55 Pulse Ox 98 09/24/18 17:55 [place] Report Viewed: Yes - Medical History PMH: Asthma, Bipolar Disorder (off medication) - Surgical History Surgical History: No Surg Hx - Family History Family History: States: Unknown Family Hx - Immunization History Hx Tetanus Toxoid Vaccination: No Hx Influenza Vaccination: No Hx Pneumococcal Vaccination: No - Home Medications Home Medications: Ambulatory Orders Medication Instructions Recorded Acetaminophen [Acetaminophen 8 650 mg PO Q8 PRN #21 tablet.er 09/20/18 Hour] Oseltamivir Phosphate [Tamiflu] 75 mg PO BID #10 capsule 09/20/18 21/Iron Fu/Folic Acid 1 each PO DAILY #60 tablet 09/20/18 [ Complete Caplet] Amoxicillin/Clavulanate [Augmentin 1 tab PO Q12H #20 tab 09/23/18 875 MG-125 MG] - Allergies Allergies/Adverse Reactions: Allergies Allergy/AdvReac Type Severity Reaction Status Date / Time No Known Allergies Allergy Verified 09/24/18 17:54 Review of Systems ROS Statement: Except As Marked, All Systems Reviewed And Found Negative Review Of Systems: ROS cannot be obtained secondary to pt's inabilty to answer questions. (pt is uncooperative and verbally abusive to staff) Musculoskeletal: Positive for: Other (wound check) Physical Exam - Reviewed Nursing Documentation Reviewed: Yes Vital Signs Reviewed: Yes - ECG O2 Sat by Pulse Oximetry: 98 Medical Decision Making Medical Decision Making: see HPI; Pt departed spewing obsenities pt appeared stable with a steady and firm gait on discharge Disposition - Clinical Impression Clinical Impression: Encounter for wound re-check - Disposition Disposition: Left W/O Treatment Disposition Time: 18:12 Condition: STABLE Forms: [employer] ([place] [employer])
== END 2018-09-24 19:02 | disposition left against medical advice (07) ==
LOC: H.ER 17:15
DX: Z02.89 Encounter for other administrative examinations (principal); Z51.89 Encounter for other specified aftercare